=== PATIENT | female | born 1960 | race Caucasian/White ===

== ENCOUNTER 2020-12-03 06:09 | Day surgery (SDC) | payer OTHER ==
[~2020-12-03] VITALS: Ht 162.6 cm; Wt 90.7 kg
[~2020-12-03 06:09] MED LIST: ALBU0.084 IN; ASPI81CH59 PO; ATO40T PO; BENA20TA14 PO; CHOL100055 PO; DIPH-515 PO; FER325T PO; FLUO40CA PO; FURO40TA4 PO; GABA300C10 PO; GLIP5TAB12 PO; INSLANTI SC; INSU100I2 SC; LATA0.0020 OP; LEVO25TA6 PO; OMEG300C7 PO; TIOT17SP IN
[2020-12-03] MEDS ORDERED: ceFAZolin 1GM/50ML 100 ML IV ONE (06:33)
[2020-12-03] MEDS ORDERED: ROCURONIUM 10MG/ML 10ML VIAL IV ONE (06:57)
[2020-12-03] MEDS ORDERED: SUCCINYLCHOLINE CHLORIDE 20 MG/ML 10ML VIAL IV ONE (06:57)
[2020-12-03] MEDS ORDERED: LIDOCAINE 1% HCL (LOCAL ANESTH.) INJ 20ML MDV ONE (06:57)
[2020-12-03] MEDS ORDERED: BUPIVACAINE HCL 50 ML ONE (07:05)
[2020-12-03] MEDS ORDERED: ONDANSETRON HCL 4 MG/2 ML VIAL ONE (07:17)
[2020-12-03] MEDS ORDERED: PROPOFOL 10 MG/ML 20 ML IV ONE ×3 (07:17→08:28)
[2020-12-03] MEDS ORDERED: KETAMINE HCL 10 ML ONE (07:17)
[2020-12-03] MEDS ORDERED: MIDAZOLAM HCL 2MG/2ML 2ml VIAL (1mg/ml) ONE (07:17)
[2020-12-03] MEDS ORDERED: SODIUM CHLORIDE LOCK 10 ML ONE (07:17)
[2020-12-03] MEDS ORDERED: fentaNYL CITRATE 100 MCG/2 ML VL ONE (07:17)
[2020-12-03] MEDS ORDERED: LIDOCAINE 2% (LOCAL ANESTH.) PF 5ml SDV ONE (08:28)
[2020-12-03] MEDS ORDERED: METOCLOPRAMIDE HCL 5MG/ml INJ 2ml VIAL IV PRN (08:45)
[2020-12-03] MEDS ORDERED: MORPHINE SULFATE 4 MG/ML SYR/VIAL IV PRN (08:45)
[2020-12-03] MEDS ORDERED: ACCU-CHEK COMFORT CURVE STRIP VI ONE (08:45)
[2020-12-03] MEDS: HYDROmorphone HCL 2 MG/ML VL IV PRN ×2 (09:45→09:55)
[2020-12-03 10:10] VITALS: BP 150/56
== END 2020-12-03 10:25 | disposition home or self-care (01) ==
LOC: SUR 06:09
PROVIDERS: ATTEND Orthopaedic Surgery Sports Medicine
DX: G56.01 Carpal tunnel syndrome, right upper limb (principal); K21.9 Gastro-esophageal reflux disease without esophagitis; E66.01 Morbid (severe) obesity due to excess calories; J44.9 Chronic obstructive pulmonary disease, unspecified; E11.40 Type 2 diabetes mellitus with diabetic neuropathy, unspecified; E78.5 Hyperlipidemia, unspecified; E11.22 Type 2 diabetes mellitus with diabetic chronic kidney disease; I12.9 Hypertensive chronic kidney disease with stage 1 through stage 4 chronic kidney disease, or unspecified chronic kidney disease; N18.4 Chronic kidney disease, stage 4 (severe); F32.9 Major depressive disorder, single episode, unspecified; I25.10 Atherosclerotic heart disease of native coronary artery without angina pectoris; F41.9 Anxiety disorder, unspecified; Z79.82 Long term (current) use of aspirin; Z68.34 Body mass index [BMI] 34.0-34.9, adult; Z96.89 Presence of other specified functional implants; Z79.899 Other long term (current) drug therapy
CPT/HCPCS: 64718; 64721; 82962; J0330; J0690; J1170; J2001; J2250; J2405; J2704; J3010; J3490; U0003